=== PATIENT | male | born 1990 ===

== ENCOUNTER 2019-05-07 11:29 | Emergency (ER) | payer OTHER ==
[~2019-05-07] VITALS: Ht 169 cm; Wt 90.2 kg
[2019-05-07 11:37] VITALS: BP 123/67; PULSE 67; TEMP 98
== END 2019-05-07 12:33 | disposition home or self-care (01) ==
LOC: COL.ER 11:29 → EDSEX 11:33 → COL.ER 12:33
DX: S83.411A Sprain of medial collateral ligament of right knee, initial encounter (principal); W22.8XXA Striking against or struck by other objects, initial encounter; Y92.322 Soccer field as the place of occurrence of the external cause; Y93.66 Activity, soccer

== ENCOUNTER 2019-06-04 21:35 | Emergency (ER) | payer OTHER ==
[~2019-06-04] VITALS: Ht 169 cm; Wt 90.0 kg
[2019-06-04 21:43] VITALS: BP 125/72; TEMP 97.9
[2019-06-04 22:22] LABS: BASO % 0.3 % (0.0-2.0); EOS # 0.3 (0.0-0.7); EOS % 2.7 % (0-4.0); GRAN # 5.8 (1.4-6.5); GRAN % 62.1 % (42.2-75.2); HEMATOCRIT 45.8 % (42.0-52.0); LYMPH # 2.5 (1.2-3.4); LYMPH % 26.8 % (20.0-51.0); MEAN CELL VOLUME 85 fl (80.0-100.0); MEAN CORPUSCULAR HEMOGLOBIN 28 pg (27.0-31.0); MEAN CORPUSCULAR HGB CONC 33 g/dl (33.0-37.0); MEAN PLATELET VOLUME 9.7 fl (7.4-10.4); MONO # 0.7 (0.1-0.6); MONO % 7.9 % (1.7-9.3); PLATELET COUNT 274 K/mm3 (130-400); RED BLOOD COUNT 5.36 M/mm3 (4.20-5.60); REDCELL DISTRIBUTION WIDTH-CV 12.7 % (11.5-14.5)
[2019-06-04 22:32] LABS: CALCIUM 9.8 mg/dL (8.4-10.2); CREATININE, serum 0.76 (0.66-1.25); POTASSIUM 3.7 mmol/L (3.4-5.0)
[2019-06-04 23:08] VITALS: PULSE 74
== END 2019-06-04 23:09 | disposition home or self-care (01) ==
LOC: COL.ER 21:35
PROVIDERS: Physician Assistant
DX: R42 Dizziness and giddiness (principal)

== ENCOUNTER → 2019-06-04 | Emergency (ER) | payer OTHER | LOC: COL.ER 21:11 | DX: Z72.9 Problem related to lifestyle, unspecified (principal) ==